=== PATIENT | female | born 1990 | race Caucasian/White ===

== ENCOUNTER 2018-08-25 20:02 | Emergency (ER) | payer SELFPAY ==
[2018-08-25 20:29] VITALS: BP 120/75; PULSE 78; TEMP 98.1; BMI 21.6
--- NOTE | 2018-08-25 20:36 | PDOC ---
History of Present Illness - History of Present Illness Initial Comments: The patient is a 28 year old female, with a significant past medical history of seizure disorder (since age 19, last seizure 2 years ago), who was BIBA to the emergency department s/p seizure 1 hour ago at gym. Patient states that while at the gym she felt an aura and knew that she was about to have a seizure. She states that she tried to sit down but fell and hit her head. According to eyewitnesses, she was unconscious for approximately 5 seconds. Patient states that it took awhile for her to regain her sense and says she was out of it ( post-ictal) for about 10 minutes. Patient states that this felt similar to her seizures in the past. Patient notes that her past seizures where around the time she ovulates. Her LMP was 2 weeks ago. She states that she is compliant with her medications. Patient states that she currently feels okay except there is some pain where she hit her head. Denies recent changes in dosage or anti seizure medication. Denies recent fever , light headed or dizziness. Denies injuries anywhere else. No recent trauma. She denies recent fevers, chills, headache or dizziness. She denies recent nausea, vomit, diarrhea or constipation. She denies recent chest pain or shortness of breath. Allergies: NKA Past surgical history: None reported. Social history: Nonsmoker. Denies EtOH use and recreational drug use. Primary Care Physician: Neurologist: Medications: Clobazam [Onfi -] 10 mg PO AM Clobazam [Onfi -] 20 mg PO HS 08/25/18 21:07 <Sandrita Herring - Last Filed: 08/25/18 21:54> <Tari Jang - Last Filed: 08/26/18 02:40> - General Chief Complaint: Seizure Stated Complaint: SEIZURE Time Seen by Provider: 08/25/18 20:13 Past History <Sandrita Herring - Last Filed: 08/25/18 21:54> - Past Medical History COPD: No Seizures: Yes Other medical history: scoliosis - Suicide/Smoking/Psychosocial Hx Smoking History: Never smoked Hx Alcohol Use: Yes (socially) Drug/Substance Use Hx: No <Tari Jang - Last Filed: 08/26/18 02:40> - Past Medical History Allergies/Adverse Reactions: Allergies Allergy/AdvReac Type Severity Reaction Status Date / Time No Known Allergies Allergy Verified 08/25/18 20:17 Home Medications: Ambulatory Orders Clobazam [Onfi -] 10 mg PO AM 08/25/18 Clobazam [Onfi -] 20 mg PO HS 08/25/18 Zonisamide [Zonegran] 300 mg PO HS 08/25/18 Review of Systems - Review of Systems Comments:: GENERAL/CONSTITUTIONAL: No fever or chills. No weakness. HEAD, EYES, EARS, NOSE AND THROAT: No change in vision. No ear pain or discharge. No sore throat. CARDIOVASCULAR: No chest pain or shortness of breath. RESPIRATORY: No cough, wheezing, or hemoptysis. GASTROINTESTINAL: No nausea, vomiting, diarrhea or constipation. GENITOURINARY: No dysuria, frequency, or change in urination. MUSCULOSKELETAL: No joint or muscle swelling or pain. No neck or back pain. SKIN: + bump on head. No rash NEUROLOGIC: +head pain, No headache, vertigo, + loss of consciousness, or change in strength/sensation. ENDOCRINE: No increased thirst. No abnormal weight change. HEMATOLOGIC/LYMPHATIC: No anemia, easy bleeding, or history of blood clots. ALLERGIC/IMMUNOLOGIC: No hives or skin allergy. 08/25/18 21:22 <Sandrita Herring - Last Filed: 08/25/18 21:54> *Physical Exam - Vital Signs Last Vital Signs Temp Pulse Resp BP Pulse Ox 98.1 F 78 18 120/75 100 08/25/18 20:03 08/25/18 20:03 08/25/18 20:03 08/25/18 20:03 08/25/18 20:03 - Physical Exam Comments: GENERAL: Awake, alert, and fully oriented, in no acute distress HEAD: Moderately tender 2 cm by 3 cm hematoma of right occipital scalp. EYES: PERRLA, EOMI, sclera anicteric, conjunctiva clear ENT: Auricles normal inspection, No hemotympanum b/l. Hearing grossly normal, nares patent, oropharynx clear without exudates. Moist mucosa NECK: No c-spine tenderness. Normal ROM, supple, no lymphadenopathy, JVD, or masses LUNGS: Breath sounds equal, clear to auscultation bilaterally. No wheezes, and no crackles HEART: Regular rate and rhythm, normal S1 and S2, no murmurs, rubs or gallops ABDOMEN/BACK: No midline tenderness. Soft, nontender, normoactive bowel sounds. No guarding, no rebound. No masses EXTREMITIES: Normal range of motion, no edema. No clubbing or cyanosis. No cords, erythema, or tenderness NEUROLOGICAL: Cranial nerves II through XII grossly intact. Normal speech, normal gait SKIN: Warm, Dry, normal turgor, no rashes or lesions noted. 08/25/18 21:54 <Sandrita Herring - Last Filed: 08/25/18 21:54> - Vital Signs Last Vital Signs Temp Pulse Resp BP Pulse Ox 98.1 F 78 18 120/75 100 08/25/18 20:03 08/25/18 20:03 08/25/18 20:03 08/25/18 20:03 08/25/18 20:03 <Tari Jang - Last Filed: 08/26/18 02:40> Moderate Sedation - Procedure Monitoring Vital Signs: Procedure Monitoring Vital Signs Temperature 98.1 F 08/25/18 20:03 Pulse Rate 78 08/25/18 20:03 Respiratory Rate 18 08/25/18 20:03 Blood Pressure 120/75 08/25/18 20:03 O2 Sat by Pulse Oximetry (%) 100 08/25/18 20:03 <Sandrita Herring - Last Filed: 08/25/18 21:54> - Procedure Monitoring Vital Signs: Procedure Monitoring Vital Signs Temperature 98.1 F 08/25/18 20:03 Pulse Rate 78 08/25/18 20:03 Respiratory Rate 18 08/25/18 20:03 Blood Pressure 120/75 08/25/18 20:03 O2 Sat by Pulse Oximetry (%) 100 08/25/18 20:03 <Tari Jang - Last Filed: 08/26/18 02:40> ED Treatment Course - LABORATORY CBC & Chemistry Diagram: 08/25/18 20:58 08/25/18 20:58 - ADDITIONAL ORDERS Additional order review: Laboratory Results 08/25/18 20:45 Urine HCG, Qual Negative <Sandrita Herring - Last Filed: 08/25/18 21:54> - LABORATORY CBC & Chemistry Diagram: 08/25/18 20:58 08/25/18 20:58 <Tari Jang - Last Filed: 08/26/18 02:40> Progress Note - Progress Note Progress Note: Documentation has been prepared under my direction and personally reviewed by me in its entirety. I attest that this documented accurately reflects all work, treatment, procedures and medical decision making performed by me. <Tari Jang - Last Filed: 08/26/18 02:40> Medical Decision Making - Medical Decision Making As noted above, this 28-year-old woman with a 9 year history of seizure disorder presents with apparent seizure suffered while she was at the gym just prior to presentation. Although it is unclear whether she had a generalized seizure, it appears that she had a period of time when she was post ictal. No clear reason for seizure activity now, considering that she has been taking her antiseizure medication as prescribed and there has been no recent change in dosage . On presentation, the patient is alert and oriented 3 with a normal exam as noted. Because patient sustained head injury and currently has headache, noncontrast head CT was performed: No evidence of fracture or acute intracranial pathology noted. CBC and chemistry profile was essentially normal except for mild elevation of transaminases. Patient informed of this lab abnormality; she has no knowledge of prior elevation of transaminases. Patient's antiseizure medication(clobazam ) apparently can cause elevation of transaminases. The patient is scheduled to see her neurologist in approximately 2 weeks. She is been advised to call her neurologist tomorrow and arrange for follow-up sooner than that. She should continue her antiseizure medication as prescribed unless advised differently by her neurologist. She should return to the emergency room if she has any further headache/vomiting or seizure activity Meanwhile, she should elevate her head and continue applying cold compresses to the area of the hematoma on her scalp. She should avoid strenuous activity tomorrow (no work). She should use Tylenol as needed for headache or other pain for the next 24 hours <Tari Jang - Last Filed: 08/26/18 02:40> *DC/Admit/Observation/Transfer - Attestations Scribe Attestion: 08/25/18 21:22 Documentation prepared by Sandrita Herring, acting as medical coder for Tari Jang MD. <Sandrita Herring Last Filed: 08/25/18 21:54> <Tari Jang - Last Filed: 08/26/18 02:40> Diagnosis at time of Disposition: Seizure Scalp hematoma Qualifiers: Encounter type: initial encounter Qualified Code(s): S00.03XA - Contusion of scalp, initial encounter - Discharge Dispostion Disposition: HOME Condition at time of disposition: Stable - Patient Instructions Printed Discharge Instructions: DI for Seizure Disorder -- Adult Additional Instructions: Ice to hematoma for 24 hours/extra pillow tonight Tylenol as needed for pain for the first 24 hours then Tylenol/Advil as needed No work tomorrow; avoid strenuous activity for the next 1-2 days Continue medications as previously prescribed Call your neurologist tomorrow morning and arrange for follow-up appointment Return to ER if you have severe headache/nausea/vomiting - Post Discharge Activity Forms/Work/School Notes: Back to Work
[2018-08-25 21:23] LABS: RDW 12.1 % (11.6-15.6)
[2018-08-25 21:25] LABS: BASO % 0.4 % (0-2.0); EOS % 0.7 % (0-4.5); HEMATOCRIT 38.1 % (32.4-45.2); HEMOGLOBIN 12.8 GM/dl (10.7-15.3); MCH 31.6 pg (25.7-33.7); MCHC 33.5 g/dl (32.0-36.0); MEAN CELL VOLUME 94.3 fl (80-96); MEAN PLT VOLUME 8.8 fl (7.5-11.1); MONO % 3.5 % (3.8-10.2); NEUT % 79.4 % (42.8-82.8); PLATELET COUNT 189 K/MM3 (134-434); RBC 4.04 M/mm3 (3.60-5.2); WHITE BLOOD COUNT 8.1 K/mm3 (4.0-10.8)
[2018-08-25 21:29] LABS: ALBUMIN 4.3 g/dl (3.5-5.0); ALK PHOS 73 U/L (32-92); ANION GAP 6 MMOL/L (8-16); BILIRUBIN,TOTAL 0.8 mg/dl (0.2-1.0); BLOOD UREA NITROGEN 11 mg/dl (7-18); CALCIUM 9.1 mg/dl (8.4-10.2); CHLORIDE 104 mmol/L (98-107); CO2 21 mmol/L (22-28); CREATININE 0.8 mg/dl (0.6-1.3); GLUCOSE,RANDOM 91 mg/dl (74-106); POTASSIUM 3.8 mmol/L (3.5-5.1); SGOT/AST 336 U/L (10-42); SGPT/ALT 89 U/L (10-40); SODIUM 131 mmol/L (136-145)
[2018-08-25] MEDS ORDERED: ACETAMINOPHEN 325 MG TABLET (FP) PO ONE (22:37)
[2018-08-25] MEDS ORDERED: ACETAMINOPHEN 325 MG TABLET (FP) ONE (22:39)
== END 2018-08-25 22:50 | disposition home or self-care (01) ==
LOC: FER 20:02
DX: S00.03XA Contusion of scalp, initial encounter (principal); R56.9 Unspecified convulsions
CPT/HCPCS: 36415; 70450-TC; 80053; 84703; 85025; 99282-25

== ENCOUNTER 2020-03-11 20:32 | Emergency (ER) | payer OTHER ==
[2020-03-11 20:56] VITALS: BP 116/73; PULSE 95; TEMP 98.4; BMI 20.7
--- NOTE | 2020-03-11 20:59 | PDOC ---
History of Present Illness - General Chief Complaint: Seizure Stated Complaint: SEIZURE History Source: Patient, EMS Exam Limitations: No Limitations - History of Present Illness Initial Comments: 03/11/20 20:50 PCP: Dr. Samayoa Neuro: At [facility] HPI: 30yo F PMH seizure disorder (since age 19, last seizure jul 2019) BIBEMS s/p seizure lasting 5 minutes. Patient appears post-ictal, providing inappr opriate answers intermittently to questions. Does state that this feels similar to her seizures in the past. Patient notes that her past seizures where around the time she ovulates. Her LMP was 2 weeks ago. She states that she is compliant with her medications. Patient states that she currently feels okay except there is some pain where she hit her head. Denies recent changes in dosage or anti seizure medication (on Clobazam 10 mg AM, 20 mg HS). Denies recent fever, light headed or dizziness. Denies injuries anywhere else. No recent trauma. She denies recent fevers, chills, headache or dizziness. She denies recent nausea, vomit, diarrhea or constipation. She denies recent chest pain or shortness of breath. Allergies: NKA PMH: As above PSH: Denies SHx: Nonsmoker. Denies EtOH use and recreational drug use. 03/11/20 21:28 Boyfirend at bedside now. Running together at an outdoor track this evening. After 50 minutes she slowed down, felt nauseous, said she dint feel well and experienced what they both describe as her typical seizure. He reports he helped her to the ground, no head trauma, spontaneous resolution after 5 minutes. Calling patient's mother to obtain information / neurologist name. Endorses that she has never been post-ictal this long before and normally "would be out of it." Past History - Travel History Traveled outside of the country in the last 30 days: No Close contact w/someone who was outside of country & ill: No - Medical History Allergies/Adverse Reactions: Allergies Allergy/AdvReac Type Severity Reaction Status Date / Time No Known Allergies Allergy Verified 08/25/18 20:17 Home Medications: Ambulatory Orders Clobazam [Onfi -] 10 mg PO AM 08/25/18 Clobazam [Onfi -] 20 mg PO HS 08/25/18 Zonisamide [Zonegran] 300 mg PO HS 08/25/18 COPD: No Seizures: Yes - Psycho-Social/Smoking History Smoking History: Never smoked Review of Systems - Review of Systems Able to Perform ROS?: Yes Is the patient limited Israeli proficient: Yes Constitutional: No: Chills, Fever, Weakness HEENTM: No: Recent change in vision, Double Vision, Nose Congestion, Throat Pain Respiratory: No: Cough, Shortness of Breath, Wheezing Cardiac (ROS): No: Chest Pain, Edema, Irregular Heart Rate, Lightheadedness, Palpitations, Syncope, Chest Tightness ABD/GI: No: Constipated, Diarrhea, Nausea, Vomiting : No: Burning, Dysuria, Frequency Musculoskeletal: No: Muscle Pain, Muscle Weakness Integumentary: No: Flushing, Lesions, Lumps, Rash Neurological: Yes: See HPI, Seizure. No: Headache, Numbness, Tingling, Weakness Psychiatric: No: Stressors, Change in Appetite Endocrine: No: Increased Thirst, Increased Urine Hematologic/Lymphatic: No: Anemia, Blood Clots, Easy Bleeding All Other Systems: Reviewed and Negative *Physical Exam - Physical Exam 03/11/20 21:53 Vitals reviewed, AFVSS GEN: Well appearing, appears stated age, NAD, comfortable. AAOx3. HEENT: NCAT, EOMI, PERRL. Sclera anicteric, noninjected. No facial asymmetry. Moist mucous membranes. Normal voice. Trachea midline. CV: RRR, S1/S2, no murmurs / rubs / gallops appreciated. LUNG: CTABL, normal work of breathing. No wheezes, rales, rhonchi. No cough. Speaking full sentences. GI: Soft, NTND, +BS, no guarding, no rebound. No masses. EXTREMITIES: 2+ distal pulses. No clubbing / cyanosis / edema. No gross deformity in any extremity. SKIN: Warm, dry, no rashes appreciated, non-jaundiced. PSYCH: Normal mood and affect. Cooperative and appropriate. NEURO: CN grossly intact. Moving all extremities well. Normal strength and sensation grossly. ED Treatment Course - LABORATORY CBC & Chemistry Diagram: 03/11/20 22:20 03/11/20 22:20 Medical Decision Making - Medical Decision Making 03/11/20 22:00 30yo F PMH seizure disorder (since age 19, last seizure jul 2019) BIBEMS s/p seizure lasting 5 minutes. History notable for seizure after 50 minute outdoor run, no head trauma, witnessed, 5 minute duration. Exam notable for confusion / expressive aphasia c/w prior post-ictal periods, longer than usual according to significant other at bedside, normal strength and sensation, normal articulation, isolated expressive aphasia. - CBC, CMP, PT - UA - NCHCT - Zofran - 1L NS 03/11/20 22:35 Concerning for prolonged post-ictal period. Patient with continued expressive aphasia, understanding what is being said, following commands, reports being scared, unable to speak right Has not returned entirely to baseline since seizure. Asks if she will have seizures the rest of her life, frustrated with aphasia 03/12/20 01:[address] - scan read with no acute findings Back to baseline MSE, holding a full conversation Reports some prolonged post-ictal states in the past (years ago), compliant with medication Follows at [facility], also does not know neurologists name, just calls direct number for appointments and says she will easily be abl to get an appointment in the next 24-48 hours. Dispo: Home Discharge - Discharge Information Problems reviewed: Yes Clinical Impression/Diagnosis: Seizure Condition: Stable Disposition: HOME - Admission No - Follow up/Referral Referrals: Sai Mehta MD [Primary Care Provider] - - Patient Discharge Instructions Patient Printed Discharge Instructions: DI for Seizure Disorder -- Adult Additional Instructions: You were seen and evaluated for seizure activity. Please continue your home medications as directed. Follow up with your neurologist in the next 24-48 hours. It is very important that you have this follow up care. If you have any recurrent symptoms or any other concerning symptoms please return to the ED. - Post Discharge Activity
[2020-03-11] MEDS ORDERED: SODIUM CHLORIDE 0.9% 500 ML INFUS.BAG IV ONE (21:01)
--- NOTE | 2020-03-11 21:05 | PDOC ---
Documentation entered by Betty Rosas SCRIBE, acting as scribe for Blanca Storey MD. Blanca Storey MD: This documentation has been prepared by the Joseph simms Xhesika, SCRIBE, under my direction and personally reviewed by me in its entirety. I confirm that the documentation accurately reflects all work, treatment, procedures, and medical decision making performed by me. Attending Attestation - Resident Resident Name: Juanpablo Hudson - ED Attending Attestation I have performed the following: I have examined & evaluated the patient, The case was reviewed & discussed with the resident, I agree w/resident's findings & plan, Exceptions are as noted - HPI HPI: 03/11/20 20:55 The patient is a 30 year old female, with a significant past medical history of seizure disorder (since age 19), who presents to the ED BIBA s/p seizure. Pt is postictal and unable to contribute to further history. Pt does not recall when seizure happened. Pt does not know who her neurologist is. Pt states she en dorsed one episode of vomiting. Allergies: NKDA PCP: Dr. Mehta - Physicial Exam PE: 03/11/20 21:02 slender 30 yo female BIBA after having a seizure according paramedics head no scalp lacerations neck no midline cervical vertebral tenderness lungs cta b/l cvs [id number] abdomen flat,nontender extremities no deformities, no lacerations skin warm and dry neuro poor historian ,motor strength 5/5, b/l ,post ictal - Medical Decision Making 03/11/20 21:05 plan pt reportedly running today in temp of mid 90s, will give IVF,preg test,cbc,comp, ct scan of head 03/12/20 01:38 ct scan of head :no acute intracranial pathology 03/12/20 01:39 pt is back to her baseline and is axox3,no focal neuro deficits she will follow up with her neurologist at [facility] this week Discharge - Discharge Information Problems reviewed: Yes Clinical Impression/Diagnosis: Seizure Condition: Stable Disposition: HOME - Follow up/Referral Referrals: Sai Mehta MD [Primary Care Provider] - - Patient Discharge Instructions Patient Printed Discharge Instructions: DI for Seizure Disorder -- Adult Additional Instructions: You were seen and evaluated for seizure activity. Please continue your home medications as directed. Follow up with your neurologist in the next 24-48 hours. It is very important that you have this follow up care. If you have any recurrent symptoms or any other concerning symptoms please return to the ED. - Post Discharge Activity
[2020-03-11] MEDS ORDERED: ONDANSETRON 4 MG/2 ML VIAL IVPUSH ONE (22:05)
[2020-03-11 22:41] LABS: BASO % 0.5 % (0-2.0); EOS % 0.2 % (0-4.5); HEMATOCRIT 37.2 % (32.4-45.2); HEMOGLOBIN 12.4 GM/dL (10.7-15.3); LYMPH % 6.3 % (8-40); MCH 31.2 pg (25.7-33.7); MCHC 33.2 g/dl (32.0-36.0); MEAN PLT VOLUME 8.5 fl (7.5-11.1); MONO % 4.1 % (3.8-10.2); NEUT % 88.9 % (42.8-82.8); PLATELET COUNT 233 K/MM3 (134-434); RBC 3.96 M/mm3 (3.60-5.2); RDW 12.7 % (11.6-15.6)
[2020-03-11 23:21] LABS: ALBUMIN 3.9 g/dl (3.4-5.0); BILIRUBIN,TOTAL 0.3 mg/dL (0.2-1); BLOOD UREA NITROGEN 11.1 mg/dL (7-18); CALCIUM 8.8 mg/dL (8.5-10.1); CREATININE 0.9 mg/dL (0.55-1.3); POTASSIUM 3.9 mmol/L (3.5-5.1); TOT PROT 6.8 g/dl (6.4-8.2)
[2020-03-12] MEDS ORDERED: ONDANSETRON 4 MG/2 ML VIAL IVPUSH ONE (01:22)
== END 2020-03-12 01:30 | disposition home or self-care (01) ==
LOC: SUPCPDRO 20:32 → JER 20:32
PROC: 3E0333Z Introduction of Anti-inflammatory into Peripheral Vein, Percutaneous Approach (ICD-10-PCS; principal; 2020-03-11)
DX: R56.9 Unspecified convulsions (principal)
CPT/HCPCS: 36415; 70450-TC; 80053; 84703; 85025; 99284-25

== ENCOUNTER 2020-04-09 18:18 | Emergency (ER) | payer OTHER ==
--- NOTE | 2020-04-09 18:26 | PDOC ---
History of Present Illness - General Chief Complaint: Seizure Stated Complaint: SEIZURE Time Seen by Provider: 04/09/20 18:23 History Source: Patient, EMS Exam Limitations: No Limitations - History of Present Illness Initial Comments: 30 year old female with PMH seizure disorder (usually once per year, until late february when she had the last) presented to ED for witnessed seizure lasting 30 seconds today. Pt denied recent illness, abdominal pain, lack of sleeping, ETOH or drug abuse. Pt denied head injury, vomiting, fever, chills, chest pain, shortness of breath. Pt reported with her seizure she usually has a prodrome of lightheadedness, which occurred today prior to her seizure. She reported her last seizure medication dosage change was >1 year ago. Pt has been running ou tside a lot, reported she drank 8 water bottles today to prevent from being dehydrated. Pt reported a slight headache. ROS General: denied fever, chills, generalized weakness. HEENT: denied sore throat, rhinorrhea, ear pain. Cardiovascular: denied chest pain, palpitations, syncope, diaphoresis. Respiratory: denied shortness of breath, cough, sputum production, hemoptysis. Gastrointestinal: denied abdominal pain, nausea, vomiting, diarrhea, constipation, blood in stool. Genitourinary: denied dysuria, increased urinary frequency, hematuria, urinary incontinence, flank pain. Back: denied back pain. Musculoskeletal: denied joint pain, muscle pain, joint swelling. Neurological: admitted to headache. denied dizziness, numbness, tingling, weakness. Integumentary: denied rash, laceration, abrasion. Hematologic/Lymphatic: denied bruising or bleeding. PE Constitutional: Well-nourished, Well-developed, appearing stated age. HEENT: head is normocephalic, atraumatic. EOMI. PERRLA. Neck: supple. Full ROM. Cardiovascular: regular heart rhythm. Normal S1 and S2. no murmurs. no pericardial friction rub. Respiratory: clear to auscultation bilaterally. no crackles, rhonchi or wheezing. no stridor. Gastrointestinal: soft, flat, nontender. normal bowel sounds. no rebound, guarding, or masses. Extremities: peripheral pulses intact and equal. no lower extremity edema noted. Neurological: CN 2-12 grossly intact. moves all four extremities. Psych: awake, alert, oriented x3. follows commands. answers questions appropriately. Past History - Medical History Allergies/Adverse Reactions: Allergies Allergy/AdvReac Type Severity Reaction Status Date / Time No Known Allergies Allergy Verified 08/25/18 20:17 Home Medications: Ambulatory Orders Clobazam [Onfi -] 10 mg PO AM 08/25/18 Clobazam [Onfi -] 20 mg PO HS 08/25/18 Zonisamide [Zonegran] 300 mg PO HS 08/25/18 COPD: No Seizures: Yes - Psycho-Social/Smoking History Smoking History: Never smoked ED Treatment Course - LABORATORY CBC & Chemistry Diagram: 04/09/20 18:33 Medical Decision Making - Medical Decision Making 30 year old female with above PMH presented to ED for witnessed seizure x30 seconds. Initial Vital Signs Temp Pulse Resp BP Pulse Ox 99 F 87 20 107/71 97 04/09/20 18:19 04/09/20 18:19 04/09/20 18:19 04/09/20 18:19 04/09/20 18:19 Afebrile. No tachycardia. No tachypnea. No hypotension. No hypoxia on room air. Pt signed out to night provider. Pending lab results and disposition. Discharge - Discharge Information Problems reviewed: Yes Clinical Impression/Diagnosis: Seizure Condition: Stable Disposition: HOME - Follow up/Referral - Patient Discharge Instructions Additional Instructions: Return to the emergency department immediately with ANY new, persistent or worsening symptoms. Continue any medications as previously prescribed by your physician. You should follow up with your primary doctor as soon as possible regarding today's emergency department visit. . Please make sure your doctor reviews the results of your emergency evaluation. Thank you for coming to the Emergency Department today for your care. It was a pleasure to see you today. Please note that your evaluation is INCOMPLETE until you follow-up with your doctor. - Post Discharge Activity
[2020-04-09] MEDS ORDERED: SODIUM CHLORIDE 1,000 ML IV STA (18:31)
[2020-04-09 18:32] VITALS: TEMP 99; BMI 19.1
[2020-04-09] MEDS ORDERED: ACETAMINOPHEN 325 MG TABLET (FP) PO ONE (18:37)
--- NOTE | 2020-04-09 18:41 | PDOC ---
Attending Attestation - Resident Resident Name: Stacia Peters - ED Attending Attestation I have performed the following: I have examined & evaluated the patient, The case was reviewed & discussed with the resident, I agree w/resident's findings & plan, Exceptions are as noted - HPI HPI: 04/09/20 18:38 30 F with h/o seizure disorder, on zonisamide and clobazam, presenting to ED s/p seizure. Pt was running outside when she began to feel an aura. She was able to lie down on the grass before she seized. Pt states that it lasted about 30 seconds and was witnessed by bystanders. Denies headstrike. Pt states that she feels back to baseline now. Denies any recent illness. No F/C. Reports compliance with her meds, no changes in dosages since 2017. Last seizure was about a year ago. - Physicial Exam PE: 04/09/20 18:40 "GENERAL: Awake, alert, and fully oriented, in no acute distress. HEAD: No signs of trauma EYES: PERRLA, EOMI, sclera anicteric, conjunctiva clear ENT: Auricles normal inspection, hearing grossly normal, nares patent, oropharynx clear without exudates. Moist mucosa NECK: Nontender, no stepoffs, Normal ROM, supple, no lymphadenopathy, JVD, or masses LUNGS: Breath sounds equal, clear to auscultation bilaterally. No wheezes, and no crackles HEART: Regular rate and rhythm, normal S1 and S2, no murmurs, rubs or gallops ABDOMEN: Soft, nontender, normoactive bowel sounds. No guarding, no rebound. No masses EXTREMITIES: Normal range of motion, no edema. No clubbing or cyanosis. No cords, erythema, or tenderness NEUROLOGICAL: Cranial nerves II through XII intact. 5/5 strength and sensation in all extremities, Normal speech, normal gait, normal cerebellar function SKIN: Warm, Dry, normal turgor, no rashes or lesions noted. - Medical Decision Making 04/09/20 18:41 30 F with seizure. Will check bloodwork to r/o electrolyte abnormality. Pt notes that dehydration is often a trigger for seizures. - CBC, CMP, UPT - IV fluids Discharge - Discharge Information Problems reviewed: Yes Clinical Impression/Diagnosis: Seizure Condition: Stable Disposition: HOME - Follow up/Referral - Patient Discharge Instructions Additional Instructions: Return to the emergency department immediately with ANY new, persistent or worsening symptoms. Continue any medications as previously prescribed by your physician. You should follow up with your primary doctor as soon as possible regarding today's emergency department visit. . Please make sure your doctor reviews the results of your emergency evaluation. Thank you for coming to the Emergency Department today for your care. It was a pleasure to see you today. Please note that your evaluation is INCOMPLETE until you follow-up with your doctor. - Post Discharge Activity
[2020-04-09] MEDS ORDERED: ACETAMINOPHEN 325 MG TABLET (FP) ONE (18:52)
[2020-04-09 19:07] LABS: CALCIUM 8.9 mg/dl (8.5-10); CREATININE 0.9 mg/dl (0.55-1.3); POTASSIUM 3.8 mmol/L (3.5-5.1)
[2020-04-09 19:46] VITALS: BP 93/62; PULSE 59
--- NOTE | 2020-04-09 19:49 | PDOC ---
*Physical Exam - Vital Signs Last Vital Signs Temp Pulse Resp BP Pulse Ox 99 F 87 20 107/71 97 04/09/20 18:19 04/09/20 18:19 04/09/20 18:19 04/09/20 18:19 04/09/20 18:19 ED Treatment Course - LABORATORY CBC & Chemistry Diagram: 04/09/20 18:33 - ADDITIONAL ORDERS Additional order review: Laboratory Results 04/09/20 04/09/20 18:33 18:33 Sodium 133 L Potassium 3.8 Chloride 106 Carbon Dioxide 19 L Anion Gap 8 BUN 11.0 Creatinine 0.9 Est GFR (CKD-EPI)AfAm 99.44 Est GFR (CKD-EPI)NonAf 85.80 Random Glucose 98 Calcium 8.9 Magnesium 2.0 Urine HCG, Qual Negative - Medications Given in the ED: ED Medications Discontinued Medications Generic Name Dose Route Start Last Admin Trade Name Freq PRN Reason Stop Dose Admin Acetaminophen 975 mg 04/09/20 18:37 04/09/20 18:51 Tylenol - PO 04/09/20 18:38 975 mg ONCE ONE Administration Sodium Chloride 1,000 mls @ 1,000 mls/hr 04/09/20 18:31 04/09/20 18:51 Normal Saline - IV 04/09/20 19:30 1,000 mls/hr ASDIR STA Administration ED Progress Note - Progress Note Progress Note: 04/09/20 19:00 This patient was transferred [place] [address] Arriaga. Patient is a 30-year-old female with a known seizure disorder who had a seizure prior to arrival. Patient at this time is feeling better she is awake alert and med compliant. Labs are pending. Once labs are back patient is also receiving IV hydration once that finishes patient will be discharged. 04/09/20 19:47 Patient sodium was a little bit low at 133 however the rest of her labs were unremarkable. Patient received some normal saline and discharged Discharge - Discharge Information Problems reviewed: Yes Clinical Impression/Diagnosis: Seizure Disposition: HOME - Admission No - Follow up/Referral - Patient Discharge Instructions Additional Instructions: Return to the emergency department immediately with ANY new, persistent or worsening symptoms. Continue any medications as previously prescribed by your physician. You should follow up with your primary doctor as soon as possible regarding today's emergency department visit. . Please make sure your doctor reviews the results of your emergency evaluation. Thank you for coming to the Emergency Department today for your care. It was a pleasure to see you today. Please note that your evaluation is INCOMPLETE until you follow-up with your doctor. - Post Discharge Activity
== END 2020-04-09 20:07 | disposition home or self-care (01) ==
LOC: FER 18:18
PROC: 3E0337Z Introduction of Electrolytic and Water Balance Substance into Peripheral Vein, Percutaneous Approach (ICD-10-PCS; principal; 2020-04-09)
DX: G40.89 Other seizures (principal)
CPT/HCPCS: 36415; 80048; 83735; 84703; 99284-25